=== PATIENT | female | born 1945 ===

== ENCOUNTER 2019-10-01 06:22 | Day surgery (SDC) | payer OTHER ==
[~2019-10-01 06:22] MED LIST: ALL DAY ALLERGY10 M3 PO; ALLERGY RELIE15.8 ML; COZAAR100 MG PO; NORVASC5 MG PO; PROTONIX20 MG PO; SINGULAIR10 MG PO; VOLTAREN100 GM TOP; ZOCOR40 MG PO
== END 2019-10-01 11:50 | disposition home or self-care (01) ==
LOC: CIR.AMB 06:22 → ADM 09:30 → CIR.AMB 09:30
DX: M43.16 Spondylolisthesis, lumbar region (principal); M47.27 Other spondylosis with radiculopathy, lumbosacral region

== ENCOUNTER 2020-04-24 10:34 | Emergency (ER) | payer OTHER ==
[~2020-04-24] VITALS: Ht 152.4 cm; Wt 77.6 kg
== END 2020-04-24 15:51 | disposition home or self-care (01) ==
LOC: ER 10:34
DX: M25.572 Pain in left ankle and joints of left foot (principal); M25.571 Pain in right ankle and joints of right foot; M25.512 Pain in left shoulder; R07.89 Other chest pain; R21 Rash and other nonspecific skin eruption; R53.81 Other malaise; Z03.818 Encounter for observation for suspected exposure to other biological agents ruled out

== ENCOUNTER 2025-05-10 07:15 | Inpatient (IN) | payer OTHER ==
[~2025-05-10] VITALS: Ht 162.6 cm; Wt 75.7 kg
[2025-05-10 07:30] LABS: BASO % 0.3 % (0.1-1.2); EOS # 0.17 (0.04-0.54); EOS % 2.9 % (0.7-7.0); LYMPH # 1.40 (1.18-3.74); LYMPH % 24.1 % (19.3-53.1); MEAN PLATELET VOLUME 9.30 fl (9.4-12.4); MONO # 0.80 (0.24-0.82); NEUT # 3.39 (1.56-6.13); NEUT % 58.6 % (34.0-71.1); RED CELL DISTRIBUTION WIDTH 15.4 % (11.6-14.4)
[2025-05-10 07:38] LABS: MONO % 13.8 % (4.7-12.5)
[2025-05-10] MEDS ORDERED: SYNTHROID50 MCG PO (07:39)
[2025-05-10] MEDS ORDERED: OXYBUTYNIN CHLOR5 MG PO (07:40)
[2025-05-10] MEDS ORDERED: NAPROXEN500 MG PO (07:40)
[2025-05-10] MEDS ORDERED: PLAQUENIL (07:42)
[2025-05-10] MEDS ORDERED: CRESTOR40 MG PO (07:43)
[2025-05-10] MEDS ORDERED: PEPCID AC20 MG (07:43)
[2025-05-10] MEDS ORDERED: TRELEGY ELLIPT1 EACH IH (07:44)
[2025-05-10] MEDS ORDERED: AMITRIPTYLINE H25 MG PO (07:44)
[2025-05-10 07:48] VITALS: BP 117/57; BP 135/78
[2025-05-10 08:13] LABS: ALT/SGPT 30.0 U/L (12-78); AST/SGOT 33.0 U/L (15-37); BILIRUBIN TOTAL 0.71 mg/dL (0.3-1.2); BUN CREA RATIO 27.0 (7.0-25.0); CREATININE SERUM 0.63 mg/dL (0.55-1.02); GFR 91.39; GLOBULINA 3.4 G/DL (2.4-3.5); GLUCOSE FASTING 90.0 mg/dL (65-100); OSMOLALITY SERUM 288.0 MOSM/KG (275-295)
[2025-05-10 08:35] LABS: INR 1.02
[2025-05-10 08:51] LABS: URINE APPEARANCE Clear; URINE BILIRRUBIN Negative (NEGATIVE); URINE BLOOD Negative; URINE COLOR Yellow; URINE GLUCOSE Negative (NEGATIVE); URINE KETONE Trace (NEGATIVE); URINE LEUKOCYTE Trace; URINE NITRATE Negative; URINE PROTEIN Trace (NEGATIVE); URINE UROBILINOGEN 0.2 E.U./dl
[2025-05-10 08:54] LABS: URINE BACTERIA 37.1 uL (0.0-1933); URINE EPITHELIAL CELLS 21.6 uL (0.0-38.8); URINE RBC 21.4 uL (0.0-20.8); URINE WBC 13.3 uL (0.0-23.2)
[2025-05-10 08:59] LABS: URINE CAST 0.43 uL (0.0-1.40)
[2025-05-17] MEDS ORDERED: CEFAZOLIN SODIUM 1,000 MG VIAL ONE (06:53)
[2025-05-17] MEDS ORDERED: BUPIVACAINE HCL/MPF 0.5% 30ML VIAL ONE (06:54)
[2025-05-17] MEDS ORDERED: TRANEXAMIC ACID 100MG/1ML (1000MG) AMPUL ONE (06:54)
[2025-05-17] MEDS ORDERED: KETOROLAC TROMETHAMINE 60 MG VIAL IM ONE (06:54)
[2025-05-17] MEDS ORDERED: ISOPROPYL ALCOHOL 30 ML OUNCE TOP ONE (06:55)
[2025-05-17] MEDS ORDERED: LIDOCAINE HCL 1%/EPINEPHRINE 20ML VIAL IJ ONE (06:55)
[2025-05-17 14:56] VITALS: BP 117/57; O2SAT 98
[2025-05-17] MEDS ORDERED: 0.9 % SODIUM CHLORIDE 1,000 ML IV SCH (15:30)
[2025-05-17 16:00] VITALS: BP 129/70; O2SAT 98
[2025-05-17 16:15] VITALS: BP 136/77; O2SAT 94
[2025-05-17] MEDS ORDERED: MORPHINE SULFATE 4 MG/ML CARTRIDGE IV SCH (17:00)
[2025-05-17] MEDS ORDERED: CEFAZOLIN SODIUM 1,000 MG VIAL IV SCH ×2 (17:00)
[2025-05-17] MEDS ORDERED: MONTELUKAST SODIUM 10 MG TABLET PO SCH (17:00)
[2025-05-17] MEDS ORDERED: OxyCODONE HCL 5 MG TABLET (ROXICODONE) PO SCH (18:00)
[2025-05-17] MEDS ORDERED: GABAPENTIN 100 MG CAPSULE PO SCH (21:00)
[2025-05-17] MEDS ORDERED: AMITRIPTYLINE HCL 25 MG TABLET PO SCH (21:00)
[2025-05-17] MEDS ORDERED: ORPHENADRINE CITRATE 100 MG TABLET PO SCH (21:00)
[2025-05-18] VITALS: BP 127/76; O2SAT 96
[2025-05-18] MEDS ORDERED: LEVOTHYROXINE SODIUM 50 MCG TABLET PO SCH (06:00)
[2025-05-18 06:30] LABS: BASO % 0.2 % (0.1-1.2); EOS # 0.06 (0.04-0.54); EOS % 0.7 % (0.7-7.0); LYMPH # 1.14 (1.18-3.74); LYMPH % 13.6 % (19.3-53.1); MEAN PLATELET VOLUME 9.80 fl (9.4-12.4); MONO # 1.01 (0.24-0.82); MONO % 12.0 % (4.7-12.5); NEUT # 6.15 (1.56-6.13); NEUT % 73.3 % (34.0-71.1); RED CELL DISTRIBUTION WIDTH 15.4 % (11.6-14.4)
[2025-05-18 08:00] VITALS: BP 136/76; O2SAT 95
[2025-05-18] MEDS ORDERED: RIVAROXABAN 10 MG TAB PO SCH (09:00)
[2025-05-18] MEDS ORDERED: AMLODIPINE BESYLATE 5 MG TABLET PO SCH (09:00)
[2025-05-18] MEDS ORDERED: LOSARTAN POTASSIUM 100 MG TABLET PO SCH (09:00)
[2025-05-18 15:30] VITALS: BP 136/63; O2SAT 92
[2025-05-18 17:26] LABS: COVID-19 AG NEGATIVE (NEGATIVE)
[2025-05-19 01:17] VITALS: BP 111/72; O2SAT 97
[2025-05-19 06:51] LABS: BASO % 0.1 % (0.1-1.2); EOS # 0.06 (0.04-0.54); EOS % 0.5 % (0.7-7.0); LYMPH # 1.17 (1.18-3.74); LYMPH % 10.1 % (19.3-53.1); MEAN PLATELET VOLUME 9.50 fl (9.4-12.4); MONO # 1.32 (0.24-0.82); MONO % 11.4 % (4.7-12.5); NEUT # 9.01 (1.56-6.13); NEUT % 77.6 % (34.0-71.1); RED CELL DISTRIBUTION WIDTH 15.2 % (11.6-14.4)
[2025-05-19 09:06] VITALS: BP 136/72; O2SAT 100
[2025-05-19] MEDS ORDERED: NORFLEX100MG PO (11:19)
[2025-05-19] MEDS ORDERED: GABAPENTIN100 MG PO (11:20)
[2025-05-19] MEDS ORDERED: XARELTO10 MG PO (11:20)
[2025-05-19] MEDS ORDERED: PERCOCET 5-3251 EACH PO (11:24)
== END 2025-05-19 16:04 | disposition home or self-care (01) | DRG 470 ==
LOC: O/R 05-17 06:00 → SURG 05-17 06:00
PROVIDERS: ADMIT Orthopaedic Surgery; ATTEND Orthopaedic Surgery
PROC: 0SRD0JZ Replacement of Left Knee Joint with Synthetic Substitute, Open Approach (ICD-10-PCS; principal; 2025-05-17)
PROC: 0QUF0KZ Supplement Left Patella with Nonautologous Tissue Substitute, Open Approach (ICD-10-PCS; 2025-05-17)
DX: M17.12 Unilateral primary osteoarthritis, left knee (principal); D62 Acute posthemorrhagic anemia; M85.662 Other cyst of bone, left lower leg; I10 Essential (primary) hypertension; Z88.1 Allergy status to other antibiotic agents; E78.5 Hyperlipidemia, unspecified; E83.59 Other disorders of calcium metabolism